=== PATIENT | female | born 1945 ===

== ENCOUNTER 2019-07-19 13:44 | Outpatient (CLI) | payer MEDICARE, OTHER ==
--- NOTE | 2019-07-19 14:19 | BD ---
EXAM: Bone densitometry using DEXA HISTORY: 74 yo female. Screening for postmenopausal osteoporosis FINDINGS: L1--bone mineral density 0.539 g/sq cm; T score -4.1 ; Z score -1.9 L2--bone mineral density 0.573 g/sq cm; T score -4.1 ; Z score -1.7 L3--bone mineral density 0.504 g/sq cm; T score -5.3 ; Z score -2.7 L4--bone mineral density 0.434 g/sq cm; T score -5.7 ; Z score -3.0 Total L1-L4--bone mineral density 0.507 g/sq cm; T score -4.9 ; Z score -2.4 Left femoral neck--bone mineral density0.457; T score -3.5 ; Z score -1.4 Total proximal left femur--bone mineral density 0.456; T score -4.0 ; Z score -2.1 The 10 year fracture risk for a major osteoporotic fracture is 31% and for a hip fracture is 21%. IMPRESSION: Osteoporosis
== END 2019-07-19 13:45 | disposition home or self-care (01) ==
LOC: BICMAMMO 13:44
PROVIDERS: ATTEND Internal Medicine Rheumatology
DX: M81.0 Age-related osteoporosis without current pathological fracture (principal)
CPT/HCPCS: 77080